=== PATIENT | male | born 1955 | race Two or more races ===

== ENCOUNTER 2019-06-05 01:55 | Emergency (ER) | payer SELFPAY ==
[~2019-06-05] VITALS: Ht 152.4 cm; Wt 59.0 kg
--- NOTE | 2019-06-05 02:00 | NUR ---
PT BIB [facility] WITH A C/O ALCOHOL INTOXICATION & GLF. PT HAS ABRASIONS ON HIS FOREHEAD, NOSE, & CHEEK. PT IS C/O LT SHOULDER PAIN. PT WAS PLACED ON THE MONITOR AND CONTINUOUS PULSE OX.
--- NOTE | 2019-06-05 03:05 | NUR ---
PT APPEARS TO BE RESTING COMFORTABLY WITH NO S/S OF PAIN OR DISTRESS.
--- NOTE | 2019-06-05 03:40 | NUR ---
PT AMBULATED TO THE BATHROOM WITH A SLOW STEADY GAIT. SAFE AND VAULT MECHANIC WAS WITH THE PT TO ENSURE HE DIDN'T FALL.
--- NOTE | 2019-06-05 03:50 | NUR ---
PT REC'D A SLING TO THE LUE.
--- NOTE | 2019-06-05 04:13 | NUR ---
CLAU, ADMITTING, IS AT THE BEDSIDE TRANSLATING FOR THE PT. PT DENIES BEING HOMELESS, BUT IS MAKING EXCUSES TO AVOID GIVING AN ADDRESS. PT STATED THAT HE DOES NOT HAVE A FRIEND THAT CAN PICK HIM UP AT THIS TIME.
--- NOTE | 2019-06-05 04:36 | NUR ---
PT APPEARS TO BE SLEEPING SOUNDLY. WILL CONTINUE TO MONITOR THE PT.
--- NOTE | 2019-06-05 05:21 | NUR ---
PT AMBULATORY W/O ASSIST ON STEADY GAIT. PT IS STABLE, VSS.
--- NOTE | 2019-06-05 05:22 | NUR ---
Patient discharged to home in stable condition. Written and verbal after care instructions given. Patient verbalizes understanding of instruction. Pt ambulatory with a steady gait
[2019-06-05 05:23] VITALS: BP 143/87
== END 2019-06-05 05:24 | disposition home or self-care (01) ==
LOC: ER 02:00
DX: S40.012A Contusion of left shoulder, initial encounter (principal); S00.31XA Abrasion of nose, initial encounter; F10.129 Alcohol abuse with intoxication, unspecified; Y90.9 Presence of alcohol in blood, level not specified; W18.09XA Striking against other object with subsequent fall, initial encounter; Y93.89 Activity, other specified; Y92.89 Other specified places as the place of occurrence of the external cause; Y99.8 Other external cause status
CPT/HCPCS: 70450; 70486; 73030; 82962; 99284; A6403